=== PATIENT | female | born 1990 | race Asian ===

== ENCOUNTER 2019-07-13 16:50 | Emergency (ER) | payer OTHER ==
[~2019-07-13] VITALS: Ht 152.4 cm; Wt 52.2 kg
[~2019-07-13 16:50] MED LIST: AMOXICILLIN250 M2 PO
[2019-07-13 17:51] VITALS: BP 106/75; TEMP 99.9
== END 2019-07-13 17:51 | disposition home or self-care (01) ==
LOC: ED 16:50
DX: L50.9 Urticaria, unspecified (principal); T36.0X5A Adverse effect of penicillins, initial encounter
CPT/HCPCS: 96372; 99283; J2930